=== PATIENT | female | born 1950 | race Caucasian/White ===

== ENCOUNTER → 2016-07-22 | Outpatient (CLI) | payer MEDICARE ==
[2016-07-22 11:57] LABS: ANION GAP 12 (5-19); BLOOD UREA NITROGEN 12 mg/dL (7-20); CALCIUM 9.8 mg/dL (8.4-10.2); CARBON DIOXIDE 28 mmol/L (22-30); CHLORIDE 102 mmol/L (98-107); CREATININE RESULT 0.97 mg/dL (0.52-1.25); GLUCOSE 177 mg/dL (75-110); POTASSIUM 4.2 mmol/L (3.6-5.0)
[2016-07-22 12:03] LABS: URINE CREATININE 67.8 mg/dL (15-278)
[2016-07-22 12:38] LABS: CREATININE 0.97 mg/dL (0.52-1.25); URINE CREATININE 67.8 mg/dL (15-278)
== END ==
LOC: OD 10:04
PROVIDERS: ATTEND Internal Medicine Nephrology
DX: N28.9 Disorder of kidney and ureter, unspecified (principal); I10 Essential (primary) hypertension; E11.9 Type 2 diabetes mellitus without complications
CPT/HCPCS: 36415; 80048; 82570; 82575; 84156

== ENCOUNTER → 2017-12-15 | Outpatient (CLI) | payer MEDICARE ==
--- NOTE | 2017-12-15 11:01 | RADIOLOGY REPORT (SQ) ---
EXAM DESCRIPTION: CHEST PA/LATERAL COMPLETED DATE/TIME: 12/15/2017 10:33 am REASON FOR STUDY: COUGH COMPARISON: Chest films 05/22/2015, 01/29/2015 EXAM PARAMETERS: NUMBER OF VIEWS: two views TECHNIQUE: Digital Frontal and Lateral radiographic views of the chest acquired. RADIATION DOSE: NA LIMITATIONS: none FINDINGS: LUNGS AND PLEURA: Minimal left lateral basilar bandlike atelectasis. Remainder of the lungs are well inflated but clear. No pleural effusions. No pneumothorax. MEDIASTINUM AND HILAR STRUCTURES: No masses or contour abnormalities. HEART AND VASCULAR STRUCTURES: Heart normal size. No evidence for failure. BONES: Osteopenic without thoracic compression deformity HARDWARE: Clips right upper quadrant post cholecystectomy. OTHER: No other significant finding. IMPRESSION: Minimal bandlike atelectasis in the lateral left lung base. TECHNICAL DOCUMENTATION: JOB ID: [id number] [employer]- All Rights Reserved Reading location - IP/workstation name: [email or web address]
== END ==
LOC: OD 10:10
PROVIDERS: ATTEND Family Medicine
DX: R05 Cough (principal)
CPT/HCPCS: 71046

== ENCOUNTER 2019-02-23 05:23 | Day surgery (SDC) | payer MEDICARE, MEDICAID ==
[2019-02-16 09:22] LABS: HEMATOCRIT 40.3 % (36.0-47.0); HEMOGLOBIN 13.5 g/dL (12.0-15.5); MEAN CORPUSCULAR HGB CONC 33.4 g/dL (32.0-36.0); MEAN CORPUSCULAR VOLUME 90 fl (80-97); PLATELET COUNT 203 10^3/uL (150-450); RED BLOOD COUNT 4.49 10^6/uL (3.72-5.28); RED CELL DISTRIBUTION WIDTH 14.2 % (11.5-14.0); WHITE BLOOD COUNT 8.7 10^3/uL (4.0-10.5)
[2019-02-16 09:26] LABS: APPEARANCE,URINE SLIGHTLY-CLOUDY; BILIRUBIN,URINE NEGATIVE (NEGATIVE); COLOR,URINE YELLOW; GLUCOSE, URINE NEGATIVE (NEGATIVE); KETONES,URINE NEGATIVE (NEGATIVE); LEUKOCYTE ESTERASE,URINE NEGATIVE (NEGATIVE); NITRITE,URINE NEGATIVE (NEGATIVE); PROTEIN,URINE NEGATIVE (NEGATIVE); URINE SPECIFIC GRAVITY 1.024; UROBILINOGEN,URINE NEGATIVE mg/dL (<2.0)
[2019-02-16 09:47] LABS: ANION GAP 8 (5-19); BLOOD UREA NITROGEN 19 mg/dL (7-20); CALCIUM 9.4 mg/dL (8.4-10.2); CARBON DIOXIDE 30 mmol/L (22-30); CHLORIDE 99 mmol/L (98-107); GLUCOSE 139 mg/dL (75-110); POTASSIUM 3.9 mmol/L (3.6-5.0)
--- NOTE | 2019-02-16 10:07 | RADIOLOGY REPORT (SQ) ---
EXAM DESCRIPTION: CHEST PA/LATERAL COMPLETED DATE/TIME: 02/16/2019 9:30 am REASON FOR STUDY: PRE-OP COMPARISON: 05/22/2015 EXAM PARAMETERS: NUMBER OF VIEWS: two views TECHNIQUE: Digital Frontal and Lateral radiographic views of the chest acquired. RADIATION DOSE: NA LIMITATIONS: none FINDINGS: LUNGS AND PLEURA: No opacities, masses or pneumothorax. No pleural effusion. MEDIASTINUM AND HILAR STRUCTURES: No masses or contour abnormalities. HEART AND VASCULAR STRUCTURES: Heart normal size. No evidence for failure. BONES: No acute findings. HARDWARE: None in the chest. OTHER: No other significant finding. IMPRESSION: NO SIGNIFICANT RADIOGRAPHIC FINDING IN THE CHEST. TECHNICAL DOCUMENTATION: JOB ID: [id number] [employer]- All Rights Reserved Reading location - IP/workstation name: [email or web address]
--- NOTE | 2019-02-16 21:10 | EKG REPORT ---
SEVERITY:- NORMAL ECG - SINUS RHYTHM : Confirmed by: Mandeep Matthews MD 16-Feb-2019 21:10:03
[~2019-02-23 05:23] MED LIST: CEFAZOLIN SODIUM 1 GM in DEXTROSE 5%-WATER 50 ML IV PRN; LACTATED RINGERS 1000 ML IV PRN; LIDOCAINE 0.5% INJ-PF (5 MG/ML) 50 ML SDV SUBCUT PRN
[2019-02-23] MEDS ORDERED: FENTANYL CITRATE INJ/PF 100 MCG/2 ML AMPUL ONE (06:53)
[2019-02-23] MEDS ORDERED: LIDOCAINE 2% INJ-PF (20 MG/ML) 10 ML AMPUL ONE (06:53)
[2019-02-23] MEDS ORDERED: MIDAZOLAM 2 MG/2 ML INJ ONE (06:53)
[2019-02-23] MEDS ORDERED: ONDANSETRON HCL INJ/PF 4 MG/2 ML SDV ONE (06:53)
[2019-02-23] MEDS ORDERED: PROPOFOL INJ 200 MG/20 ML VIAL IV ONE (06:53)
[2019-02-23] MEDS ORDERED: LIDOCAINE 1%/EPINEPHRINE INJ 20 ML VIAL ONE (07:07)
[2019-02-23] MEDS ORDERED: OXYCODONE-ACETAMINOPHEN 5-325 MG TABLET PO PRN ×3 (07:38→08:30)
[2019-02-23] MEDS ORDERED: FENTANYL CITRATE INJ/PF 100 MCG/2 ML AMPUL IV PRN ×3 (07:38)
[2019-02-23] MEDS ORDERED: MEPERIDINE HCL/PF INJ 25 MG/1 ML DISP.SYRIN IV PRN (07:38)
[2019-02-23] MEDS ORDERED: ONDANSETRON HCL INJ/PF 4 MG/2 ML SDV IV PRN (07:38)
[2019-02-23] MEDS ORDERED: PROMETHAZINE HCL INJ 25 MG/1 ML VIAL IV PRN ×2 (07:38)
[2019-02-23] MEDS ORDERED: DIPHENHYDRAMINE HCL 50 MG/ML VIAL IV PRN (07:38)
--- NOTE | 2019-02-23 08:05 | Operative Report ---
Operative Report DATE OF SURGERY: 02/23/19 PREOPERATIVE DIAGNOSIS: SOUTH Pap POSTOPERATIVE DIAGNOSIS: South Pap OPERATION: Cold knife conization, D&C, hysteroscopy SURGEON: EMMETT MAGALLANES ANESTHESIA: LMAC TISSUE REMOVED OR ALTERED: Cervical cone, endometrial biopsy COMPLICATIONS: none ESTIMATED BLOOD LOSS: 5 mL's INTRAOPERATIVE FINDINGS: Irregular anterior wall the uterus amount of tissue obtained, stenotic cervix PROCEDURE: Indication post procedure the patient had an atypical glandular cell Pap and with difficulty on exam in the office Due to bilateral hip replacements. Stenotic cervix was also noted. The patient is apprised of the usual risk of bleeding infection anesthesia damage to other organs and tissues. the patient was taken the operating room and after adequate anesthesia was after was ascertained with LMAC and paracervical block with 1% lidocaine the examined anesthesia ensued and stenotic cervix was dilated. Cold knife conization was held off to the end of the case due to the difficulty in locating the cervix os. Hysteroscopy ensued irregular anterior wall was noted, biopsies were obtained productive of a small amount of tissue. Bleeding was nil. : Conization and then ensued and speech was placed at 12 o'clock position of the specimen. Cauterization of the bed of the biopsy site was performed with minimal bleeding. The completion procedure all sponge needle counts were correct
[2019-02-23] MEDS ORDERED: PROMETHAZINE HCL INJ 25 MG/1 ML VIAL IM PRN (08:30)
[2019-02-23] MEDS ORDERED: MORPHINE INJ 4 MG DOSE (EDIT ROUTE) INJ PRN (08:30)
[2019-02-23] MEDS ORDERED: OXYCODONE-ACETAMINOPHEN 5-325 MG TABLET ONE (08:43)
[2019-02-23 10:25] VITALS: BP 113/67
[2019-02-23] MEDS ORDERED: IBUPROFEN 800 MG TABLET PO SCH (14:00)
== END 2019-02-23 09:30 | disposition home or self-care (01) ==
LOC: OROUT 05:23
PROVIDERS: ATTEND Specialist
DX: N87.0 Mild cervical dysplasia (principal); I10 Essential (primary) hypertension; E78.00 Pure hypercholesterolemia, unspecified; E11.9 Type 2 diabetes mellitus without complications; Z79.899 Other long term (current) drug therapy
CPT/HCPCS: 93005; 86900; 86901; 36415; 86850; 82962; 85027; 80048; 81001; 88305 ×2; 88307 ×2; 71046; 93010; 57520; 58558; J2250; J0690; J3010; J3490 ×2; A9270; J2405; J7060; J2704; 940

== ENCOUNTER 2019-06-23 14:24 | Emergency (ER) | payer MEDICAID, MEDICARE ==
--- NOTE | 2019-06-23 14:36 | ER Document Report ---
ED Medical Screen (RME) - General Chief Complaint: Abscess Stated Complaint: POSSIBLE BREAST LUMP Time Seen by Provider: 06/23/19 14:29 Primary Care Provider: GERMAN LOWERY FNP-C [Primary Care Provider] - Follow up as needed Mode of Arrival: Ambulatory Information source: Patient Notes: 69-year-old female presents to ED for a lump to the right breast. She states it is been there for about 3 days. It is red swollen firm. Patient is alert oriented respirations regular nonlabored speaking in full sentences walks with even steady gait. I have greeted and performed a rapid initial assessment of this patient. A comprehensive ED assessment and evaluation of the patient, analysis of test results and completion of medical decision making process will be conducted by an additional ED providers. TRAVEL OUTSIDE OF THE [place] IN LAST 30 DAYS: No - Related Data Allergies/Adverse Reactions: No Known Allergies Allergy (Verified 02/23/19 05:52) Past Medical History - General Information source: Patient - Social History Cigarette use (# per day): Yes - 11 cigarettes a day Frequency of alcohol use: Rare Drug Abuse: None Lives with: Family Family history: Reviewed & Not Pertinent - Past Medical History Cardiac Medical History: Reports: Hx Hypercholesterolemia - meds x 2.5 years, Hx Hypertension - meds Pulmonary Medical History: Reports: Hx Bronchitis - annually Neurological Medical History: Reports: None Endocrine Medical History: Reports: Hx Diabetes Mellitus Type 2 Renal/ Medical History: Reports: Hx Ovarian Cysts - as teenager Malignancy Medical History: Reports: None GI Medical History: Reports: Hx Colonoscopy Musculoskeltal Medical History: Reports Hx Arthritis - lower back, Reports Hx Fibromyalgia, Reports Hx Musculoskeletal Trauma Skin Medical History: Reports None Psychiatric Medical History: Reports: Hx Depression, Hx Post Traumatic Stress Disorder Traumatic Medical History: Reports: Hx Fractures - LT great toe, RT 5th toe, no surgeries Infectious Medical History: Reports: None Past Surgical History: Reports: Hx Adenoidectomy, Hx Cholecystectomy - open, 2002, Hx Orthopedic Surgery - Bilateral hip replacement, Hx Tonsillectomy - as child - Immunizations Immunizations up to date: Yes Hx Diphtheria, Pertussis, Tetanus Vaccination: Yes Doctor's Discharge - Discharge Referrals: GERMAN LOWERY FNP-C [Primary Care Provider] - Follow up as needed
--- NOTE | 2019-06-23 15:45 | RADIOLOGY REPORT (SQ) ---
EXAM DESCRIPTION: U/S CHEST COMPLETED DATE/TIME: 06/23/2019 3:18 pm REASON FOR STUDY: Abscess lower right breast COMPARISON: None. EXAM PARAMETERS: TECHNIQUE: Real-time and static grayscale imaging performed of the right breast tar geted to the area of clinical/mammographic concern, 6 o'clock location 6 cm from the nipple. Selected color Doppler images recorded. LIMITATIONS: None. FINDINGS: MASS: Irregular hypoechoic mass measuring 1.1 x 1.4 x 1.9 cm. A few areas of vascularity present on Doppler imaging. OTHER: No other significant finding. IMPRESSION: Hypoechoic mass in the inferior breast. Differential includes infection with developing abscess versus solid mass. BIRAD: 4 Suspicious. Biopsy should be considered. RECOMMENDATION: RECOMMENDED FOLLOW-UP: If abscess is suspected, then follow-up ultrasound after anti biotic therapy should be performed. Percutaneous drainage may be necessary. If malignancy is suspec dary, then ultrasound-guided biopsy should be performed. COMMENT: The [employer] (ACR) has developed recommendations for screening MRI of the breasts in certain patient populations, to be used in conjunction with mammography. Breast MRI s urveillance may be appropriate for women with more than 20% lifetime risk of developing breast cancer as determined by genetic testing, significant family history of the disease, or history of mantle r adiation for Hodgkins Disease. ACR Practice Guidelines 2008. TECHNICAL DOCUMENTATION: JOB ID: [id number] 2010 [employer]- All Rights Reserved Reading location - IP/workstation name: [email or web address]
[2019-06-23] MEDS ORDERED: LIDOCAINE 1%/EPINEPHRINE INJ 20 ML VIAL INJ ONE (16:23)
[2019-06-23] MEDS ORDERED: HYDROCODONE/ACETAMINOPHEN 5-325 MG TABLET PO ONE (16:23)
--- NOTE | 2019-06-23 16:38 | ER Document Report ---
ED Skin Rash/Insect Bite/Abscs - General Chief Complaint: Abscess Stated Complaint: POSSIBLE BREAST LUMP Time Seen by Provider: 06/23/19 14:29 Primary Care Provider: GERMAN LOWERY FNP-C [Primary Care Provider] - Follow up in 3-5 days Mode of Arrival: Ambulatory Notes: Patient is a 69-year-old female who is a diabetic who presents to the emergency department with a chief complaint of a painful lump to her right inferior breast. Patient states that the lump has been there about 3 days. Patient states that her daughter had MRSA before. Patient denies any previous issues. She denies any fever, body aches, or chills. She has not seen a primary care provider in regards to this issue. TRAVEL OUTSIDE OF THE [place] IN LAST 30 DAYS: No - Related Data Allergies/Adverse Reactions: No Known Allergies Allergy (Verified 06/23/19 14:31) Past Medical History - General Information source: Patient - Social History Smoking Status: Current Every Day Smoker Cigarette use (# per day): Yes - 11 cigarettes a day Chew tobacco use (# tins/day): No Frequency of alcohol use: Rare Drug Abuse: None Lives with: Family Family History: Reviewed & Not Pertinent Patient has suicidal ideation: No Patient has homicidal ideation: No - Past Medical History Cardiac Medical History: Reports: Hx Hypercholesterolemia - meds x 2.5 years, Hx Hypertension - meds Pulmonary Medical History: Reports: Hx Bronchitis - annually Neurological Medical History: Reports: None Endocrine Medical History: Reports: None, Hx Diabetes Mellitus Type 2 Renal/ Medical History: Reports: Hx Ovarian Cysts - as teenager Malignancy Medical History: Reports: None GI Medical History: Reports: Hx Colonoscopy. Denies: Hx Hepatitis Musculoskeletal Medical History: Reports Hx Arthritis - lower back, Reports Hx Fibromyalgia, Reports Hx Musculoskeletal Trauma Skin Medical History: Reports None Psychiatric Medical History: Reports: Hx Depression, Hx Post Traumatic Stress Disorder Traumatic Medical History: Reports: Hx Fractures - LT great toe, RT 5th toe, no surgeries Infectious Medical History: Reports: None. Denies: Hx Hepatitis, Hx HIV Past Surgical History: Reports: Hx Adenoidectomy, Hx Cholecystectomy - open, 2002, Hx Orthopedic Surgery - Bilateral hip replacement, Hx Tonsillectomy - as child - Immunizations Immunizations up to date: Yes Hx Diphtheria, Pertussis, Tetanus Vaccination: Yes Hx Pneumococcal Vaccination: 05/09/18 Review of Systems - Review of Systems Notes: REVIEW OF SYSTEMS: CONSTITUTIONAL : Denies recent illness. Denies recent unintentional weight loss. Denies fever, chills, or sweats. EENT: Denies eye, ear, throat, or mouth pain, discharge, or symptoms. Denies nasal or sinus congestion. CARDIOVASCULAR: Denies chest pain. RESPIRATORY: Denies shortness of breath, cough, congestion, difficulty breathing, or wheezing. GASTROINTESTINAL: Denies nausea, vomiting, and diarrhea. Denies abdominal pain. Denies constipation. GENITOURINARY: Denies difficulty urinating, burning, blood in urine, urgency or frequency. MUSCULOSKELETAL: Denies neck and back pain. Denies joint pain or swelling. SKIN: See HPI. HEMATOLOGIC : Denies easy bruising or bleeding. LYMPHATIC: Denies swollen, painful, enlarged glands. NEUROLOGICAL: Denies no numbness or tingling denies weakness. Denies headache. Denies altered mental status. Denies alteration in speech. PSYCHIATRIC: Denies stress, anxiety, alteration in sleep patterns, or depression. All other systems reviewed and negative. Physical Exam - Vital signs Vitals: Temp Pulse Resp BP Pulse Ox 98.9 F 74 18 128/83 H 98 06/23/19 14:36 06/23/19 14:36 06/23/19 14:36 06/23/19 14:36 06/23/19 14:36 - Notes Notes: PHYSICAL EXAMINATION: GENERAL: Appears well, healthy, well-nourished, no acute distress. HEAD: Normocephalic, atraumatic. EYES: PERRL, conjunctiva normal, all extraocular movements intact, sclera nonicteric ENT: Moist mucous membranes. NECK: Supple, no noticeable swelling, redness, rash. Normal range of motion. LUNGS: Equal breath sounds bilaterally and clear to auscultation. No wheezes rales or rhonchi. CARDIOVASCULAR: S1-S2, regular rate, regular rhythm. Radial pulses 2+, normal. ABDOMEN: Normoactive bowel sounds. Soft, nontender, no guarding, no rebound tenderness, and no masses palpated. EXTREMITIES: Normal strength and range of motion, no pitting or edema. No cyanosis. NEUROLOGICAL: Moves all extremities upon command. Strength 5/5 in all extremities. PSYCH: Normal mood, normal affect. SKIN: Warm, dry. No rash, lesions, ulcerations noted. Normal skin turgor. Area of fluctuation noted to right inferior breast. Erythema noted. Course - Re-evaluation Re-evalutation: 06/23/19 17:47 Differential diagnosis includes but normal limited to: abscess, dermoid cyst, sebaceous cyst, furnucle, or others. Chest ultrasound shows a hypoechoic mass to the inferior breast. I ended up poking the area with a needle and noted that there was purulent drainage from the area. It appears as if it is most likely a follicle that became infected.Based on patient's physical exam and history, this is an abscess. It was drained in the ER. Packing was placed. There is surrounding cellulitis. I do not believe the patient has underlying necrotizing fasciitis. Based on patient's physical exam and these factors, they will be treated with antibiotics. Patient will follow-up in the emergency department or primary care provider to have packing removed. Follow-up precautions were given. Verbal discharge instructions were given to the patient. They verbalized understanding. They are stable for discharge. - Vital Signs Vital signs: Temp Pulse Resp BP Pulse Ox 99.2 F 20 L 20 115/41 L 95 06/23/19 18:25 06/23/19 18:25 06/23/19 18:25 06/23/19 18:25 06/23/19 18:25 Discharge - Discharge Clinical Impression: Breast abscess Condition: Stable Disposition: HOME, SELF-CARE Instructions: Abscess ([facility]), Cephalexin ([facility]), Post Incision and Drainage, Trimethoprim-Sulfa ([facility]) Additional Instructions: You were seen for an abscess that required drainage. Packing was placed to the area. Please return on Tuesday or see your primary care provider to have your packing reevaluated. Please make sure you take your antibiotics. Please return if you develop fever, vomiting, the pain at the site worsens, you notice spreading redness from the area, or you have any other symptoms that are concerning to you. Prescriptions: Sulfamethoxazole/Trimethoprim [Bactrim Ds Tablet] 1 each PO BID 7 Days #14 tablet Cephalexin Monohydrate [Keflex 500 mg Capsule] 500 mg PO Q6H 7 Days #28 capsule Referrals: GERMAN LOWERY FNP-C [Primary Care Provider] - Follow up in 3-5 days
[2019-06-23 18:27] VITALS: BP 115/41
== END 2019-06-23 18:25 | disposition home or self-care (01) ==
LOC: ER 14:24
DX: N61.1 Abscess of the breast and nipple (principal); E11.9 Type 2 diabetes mellitus without complications; F17.210 Nicotine dependence, cigarettes, uncomplicated
CPT/HCPCS: 10060; 99283; 87070; 87205; 87075; 76604; J3490; A9270; 87077

== ENCOUNTER 2019-06-26 07:57 | Emergency (ER) | payer MEDICARE ==
[2019-06-26 08:04] VITALS: BP 106/69
--- NOTE | 2019-06-26 11:51 | ER Document Report ---
ED General - General Chief Complaint: Abscess Recheck Stated Complaint: ABSCESS RECHECK Time Seen by Provider: 06/26/19 11:18 Primary Care Provider: GERMAN LOWERY FNP-C [Primary Care Provider] - Follow up as needed Information source: Patient TRAVEL OUTSIDE OF THE [place] IN LAST 30 DAYS: No - HPI Notes: Patient presents for recheck of an abscess. Patient states that she was seen here 2 days ago and had an abscess drained on her right breast. She states she is had no further concerns and that she presents as to have the recheck as instructed. She has had some mild pain over the area but it has been improving. It is worse if possible or if left alone. No significant radiation of the pain. The pain has been constant and mild. No fever sweats or chills. - Related Data Allergies/Adverse Reactions: No Known Allergies Allergy (Verified 06/23/19 14:31) Past Medical History - General Information source: Patient - Social History Smoking Status: Current Every Day Smoker Chew tobacco use (# tins/day): No Frequency of alcohol use: None Drug Abuse: None Family History: Reviewed & Not Pertinent Patient has suicidal ideation: No Patient has homicidal ideation: No - Past Medical History Cardiac Medical History: Reports: Hx Hypercholesterolemia - meds x 2.5 years, Hx Hypertension - meds Pulmonary Medical History: Reports: Hx Bronchitis - annually Endocrine Medical History: Reports: Hx Diabetes Mellitus Type 2 Renal/ Medical History: Reports: Hx Ovarian Cysts - as teenager GI Medical History: Reports: Hx Colonoscopy. Denies: Hx Hepatitis Musculoskeletal Medical History: Reports Hx Arthritis - lower back, Reports Hx Fibromyalgia, Reports Hx Musculoskeletal Trauma Psychiatric Medical History: Reports: Hx Depression, Hx Post Traumatic Stress Disorder Traumatic Medical History: Reports: Hx Fractures - LT great toe, RT 5th toe, no surgeries Infectious Medical History: Denies: Hx Hepatitis, Hx HIV Past Surgical History: Reports: Hx Adenoidectomy, Hx Cholecystectomy - open, 2002, Hx Orthopedic Surgery - Bilateral hip replacement, Hx Tonsillectomy - as child - Immunizations Immunizations up to date: Yes Hx Diphtheria, Pertussis, Tetanus Vaccination: Yes Hx Pneumococcal Vaccination: 05/09/18 Review of Systems - Review of Systems Constitutional: denies: Chills, Fever Cardiovascular: Chest pain. denies: Palpitations Respiratory: denies: Cough, Short of breath Physical Exam - Vital signs Vitals: Temp Pulse Resp BP Pulse Ox 98.7 F 70 16 106/69 96 06/26/19 08:02 06/26/19 08:02 06/26/19 08:02 06/26/19 08:02 06/26/19 08:02 Interpretation: Normal - General General appearance: Appears well, Alert - Psychological Associated symptoms: Normal affect, Normal mood - Skin Skin Temperature: Warm Skin Moisture: Dry Skin Color: Other - Skin exam is normal except underneath the right breast she has some mild erythema and slight induration. She has a healing abscess. There is some very mild pustular drainage from the site. No packing is in place. A new dressing will be placed. Course - Vital Signs Vital signs: Temp Pulse Resp BP Pulse Ox 98.7 F 70 16 106/69 96 06/26/19 08:02 06/26/19 08:02 06/26/19 08:02 06/26/19 08:02 06/26/19 08:02 Discharge - Discharge Clinical Impression: Abscess re-check Condition: Stable Disposition: HOME, SELF-CARE Instructions: Post Incision and Drainage Additional Instructions: Please continue your antibiotics Referrals: GERMAN LOWERY FNP-C [Primary Care Provider] - Follow up in 3-5 days
== END 2019-06-26 11:51 | disposition home or self-care (01) ==
LOC: ER 07:57
DX: N61.1 Abscess of the breast and nipple (principal); F17.200 Nicotine dependence, unspecified, uncomplicated
CPT/HCPCS: 99282